=== PATIENT | female | born 1980 | race Caucasian/White ===

== ENCOUNTER 2017-04-22 23:50 | Inpatient (IN) | payer MEDICARE, MEDICAID ==
[~2017-04-22] VITALS: Ht 165.1 cm; Wt 70.9 kg
[2017-04-23 00:25] LABS: INTERNATIONAL NORMALIZED RATIO 0.99 (0.93-1.1); PROTHROMBIN TIME 10.3 Seconds (9.6-11.5)
[2017-04-23 00:32] LABS: MEAN CORPUSCULAR HEMOGLOBIN 25.1 pg (27.0-34.8); MEAN CORPUSCULAR HGB CONC 32.2 g/dL (32.4-35.8); MEAN PLATELET VOLUME 8.6 fL (7.4-10.4); PLATELET COUNT 140 x10^3/uL (130-400); RED BLOOD COUNT 3.78 x10^6/uL (3.82-5.3); RED CELL DISTRIBUTION WIDTH 24.5 % (9.6-15.2)
[2017-04-23 00:43] LABS: MD YES
[2017-04-23 00:45] LABS: EOS#(MANUAL) 0.12 x10^3/uL (0.0-0.4); EOS% (MANUAL) 3 % (1-7); LYMPH#(MANUAL) 2.01 x10^3/uL (1-3.4); LYMPHS% (MANUAL) 49 % (22-44); MONOS#(MANUAL) 0.41 x10^3/uL (0.3-2.7); MONOS% (MANUAL) 10 % (2-9); SEG#(MANUAL) 1.56 x10^3/uL (1.8-6.8); SEGS% (MANUAL) 38 % (42-75)
[2017-04-23 00:46] LABS: <PLATELET ESTIMATE> ADEQUATE; ANISOCYTOSIS 1+; HYPOCHROMIA 1+; LARGE PLATELETS 1+
[2017-04-23] MEDS ORDERED: OMNIPAQUE 350 MG/ML, 100ML BOTTLE ONE (01:13)
[2017-04-23 03:21] VITALS: BP 136/80
[2017-04-23 04:39] LABS: AMPHETAMINE SCREEN, URINE Negative (Negative); BARBITURATE SCREEN, URINE Negative (Negative); BENZODIAZEPINE SCREEN, URINE Negative (Negative); CANNABINOID SCREEN, URINE Positive (Negative); COCAINE SCREEN, URINE Negative (Negative); METHADONE SCREEN, URINE Negative (Negative); OPIATE SCREEN, URINE Negative (Negative)
[2017-04-23] MEDS ORDERED: LEVE100020 PO (05:27)
[2017-04-23] MEDS: SODIUM CHLORIDE 0.9% 1,000 ML IV SCH ×2 (05:54→14:11)
[2017-04-23] MEDS ORDERED: ENALAPRILAT 1.25 MG/ML, 2ML IVPush PRN (06:00)
[2017-04-23] MEDS ORDERED: ONDANSETRON 2MG/ML, 2ML IVPush PRN (06:00)
[2017-04-23] MEDS ORDERED: BISACODYL 10 MG SUPP PR PRN (06:00)
[2017-04-23] MEDS ORDERED: hydrALAzine 20 MG/ML, 1ML IVPush PRN (06:00)
[2017-04-23] MEDS ORDERED: POLYETHYLENE GLYCOL 17 GM PACKET PO PRN (06:00)
[2017-04-23] MEDS ORDERED: ACETAMINOPHEN 325 MG TABLET PO PRN (06:00)
[2017-04-23] MEDS ORDERED: morphine SULFATE 10 MG/ML, 1ML IVPush PRN (06:00)
[2017-04-23] MEDS: OXYcodone IR 5MG TABLET PO PRN ×5 (06:11→22:03)
[2017-04-23] MEDS: HEPARIN 5,000 UNITS/ML, 1ML SQ SCH ×3 (06:11→22:03)
[2017-04-23 07:20] LABS: HEMOGLOBIN A1C 4.9 % (4.2-6.3)
[2017-04-23 07:22] LABS: FREE T4 (FREE THYROXINE) 0.9 ng/dL (0.76-1.46); THYROID STIMULATING HORMONE 2.82 mIU/L (0.358-3.740)
[2017-04-23 08:39] VITALS: BP 138/89
[2017-04-23] MEDS: SENNA/DOCUSATE TABLET PO SCH (08:46)
[2017-04-23] MEDS: LEVETIRACETAM 500 MG TABLET PO SCH ×2 (08:46→21:14)
[2017-04-23] MEDS: NICOTINE 7 MG/24 HR PATCH.TD24 TD SCH (10:18)
[2017-04-23 13:03] VITALS: BP 116/79
[2017-04-23] MEDS ORDERED: PRAZ2CAP PO (13:57)
[2017-04-23 16:53] LABS: CULTURE INDICATED? NO; MICROSCOPIC NOT IND
[2017-04-23 19:56] VITALS: BP 120/74
[2017-04-23] MEDS: FERROUS GLUCONATE 324 MG TABLET PO SCH (21:14)
[2017-04-24 01:11] VITALS: BP 133/95
[2017-04-24] MEDS: OXYcodone IR 5MG TABLET PO PRN ×3 (02:23→11:08)
[2017-04-24 05:38] LABS: CHLORIDE 111 mmol/L (98-107)
[2017-04-24] MEDS: HEPARIN 5,000 UNITS/ML, 1ML SQ SCH (05:43)
[2017-04-24 05:45] LABS: ALANINE AMINOTRANSFERASE 92 U/L (12-78); ALKALINE PHOSPHATASE 145 U/L (45-117); ANION GAP 6 mmol/L (5-15); BILIRUBIN,TOTAL 0.7 mg/dL (0.2-1.0); CALCIUM 7.8 mg/dL (8.5-10.1); CHOL/HDL RATIO 1.3; CHOLESTEROL, TOTAL 137 mg/dL (140-239); CREATININE 0.37 mg/dL (0.55-1.02); HDL CHOL % 74 % (28-40); HDL CHOLESTEROL (DIRECT) 102 mg/dL (40-60); LDL CHOLESTEROL,CALCULATED 15 mg/dL (54-169); LDL/HDL RATIO 0.1 (0.5-3.0); TOTAL PROTEIN 5.9 g/dL (6.4-8.2); TRIGLYCERIDES 101 mg/dL (50-200); VLDL CHOLESTEROL 20 mg/dL (0-25)
[2017-04-24 06:11] LABS: MEAN CORPUSCULAR HEMOGLOBIN 25.6 pg (27.0-34.8); MEAN CORPUSCULAR HGB CONC 31.6 g/dL (32.4-35.8); MEAN CORPUSCULAR VOLUME 80.9 fL (80-100); MEAN PLATELET VOLUME 8.7 fL (7.4-10.4); PLATELET COUNT 87 x10^3/uL (130-400); RED BLOOD COUNT 3.18 x10^6/uL (3.82-5.3); RED CELL DISTRIBUTION WIDTH 24.9 % (9.6-15.2)
[2017-04-24 06:26] LABS: MD YES
[2017-04-24 06:31] LABS: ANISOCYTOSIS 1+; EOS#(MANUAL) 0.08 x10^3/uL (0.0-0.4); EOS% (MANUAL) 3 % (1-7); HYPOCHROMIA 1+; LYMPH#(MANUAL) 1.12 x10^3/uL (1-3.4); LYMPHS% (MANUAL) 40 % (22-44); MONOS#(MANUAL) 0.28 x10^3/uL (0.3-2.7); MONOS% (MANUAL) 10 % (2-9); SEG#(MANUAL) 1.32 x10^3/uL (1.8-6.8); SEGS% (MANUAL) 47 % (42-75)
[2017-04-24 06:33] LABS: <PLATELET ESTIMATE> DECREASED; LARGE PLATELETS 1+
[2017-04-24 08:01] VITALS: BP 120/77
[2017-04-24] MEDS: FERROUS GLUCONATE 324 MG TABLET PO SCH (08:29)
[2017-04-24] MEDS: LEVETIRACETAM 500 MG TABLET PO SCH (08:29)
[2017-04-24] MEDS: SENNA/DOCUSATE TABLET PO SCH (08:30)
[2017-04-24] MEDS: NICOTINE 7 MG/24 HR PATCH.TD24 TD SCH (08:32)
[2017-04-24] MEDS ORDERED: MULTIVITAMIN 1 TABLET PO SCH (09:00)
== END 2017-04-24 12:05 | disposition left against medical advice (07) | DRG 101 ==
LOC: ED 23:59 → EDIP 04-23 03:12 → 4NOR 04-23 03:14
PROVIDERS: ADMIT Internal Medicine; ATTEND Internal Medicine
PROC: 0T9B70Z Drainage of Bladder with Drainage Device, Via Natural or Artificial Opening (ICD-10-PCS; principal; 2017-04-23)
DX: G40.909 Epilepsy, unspecified, not intractable, without status epilepticus (principal); K56.600 Partial intestinal obstruction, unspecified as to cause; G83.84 Todd's paralysis (postepileptic); D63.8 Anemia in other chronic diseases classified elsewhere; F10.10 Alcohol abuse, uncomplicated; D50.9 Iron deficiency anemia, unspecified; D18.03 Hemangioma of intra-abdominal structures; F12.10 Cannabis abuse, uncomplicated; K76.0 Fatty (change of) liver, not elsewhere classified; G24.9 Dystonia, unspecified; K29.00 Acute gastritis without bleeding; K29.20 Alcoholic gastritis without bleeding; F51.4 Sleep terrors [night terrors]; F17.200 Nicotine dependence, unspecified, uncomplicated; Z98.84 Bariatric surgery status; Z90.49 Acquired absence of other specified parts of digestive tract; Z86.73 Personal history of transient ischemic attack (TIA), and cerebral infarction without residual deficits; Z88.8 Allergy status to other drugs, medicaments and biological substances; I88.0 Nonspecific mesenteric lymphadenitis
CPT/HCPCS: 36415; 70450; 70551; 74177; 80047; 80053; 80061; 80177; 80307; 81003; 82306; 82607; 82728; 83036; 83540; 83550; 84439; 84443; 84466; 84703; 85025; 85610; 85730; 93005; J1644; Q9967; 92523-GN; J2270; J7030